=== PATIENT | male | born 1980 | race Two or more races ===

== ENCOUNTER 2017-04-28 21:02 | Emergency (ER) | payer SELFPAY ==
[~2017-04-28 21:02] MED LIST: BENTYL20 MG PO; CIPRO PO; IBUPROFEN800 MG PO; IMMODIUM1 MG/5 M1 PO; K-DUR20 ME1 PO; LOMOTIL TABLET1 TAB PO; PHENERGAN25 M1 PO; ZOFRAN ODT4 MG PO
== END 2017-04-28 23:00 | disposition home or self-care (01) ==
LOC: CFTX 21:02 → CED 21:02 → CFTX 22:29
DX: S91.332A Puncture wound without foreign body, left foot, initial encounter (principal); Z23 Encounter for immunization; W45.0XXA Nail entering through skin, initial encounter; Y92.009 Unspecified place in unspecified non-institutional (private) residence as the place of occurrence of the external cause
CPT/HCPCS: 90471; 90715; 99283